=== PATIENT | male | born 1975 | race Caucasian/White ===

== ENCOUNTER 2024-02-03 19:49 | Emergency (ER) | payer OTHER ==
[2024-02-03 20:18] VITALS: BP 139/88; PULSE 91; RESP 19; TEMP 98.5; BMI 31.4
[2024-02-03] MEDS ORDERED: ALBUTEROL SO4 2.5/IPRATROPIUM 0.5 INH SOL 3 ML VIAL.NEB. NEB ONE (22:01)
[2024-02-03] MEDS: ALBUTEROL SO4 2.5/IPRATROPIUM 0.5 INH SOL 3 ML VIAL.NEB. NEB ONE ×2 (22:03)
[2024-02-03] MEDS ORDERED: DEXAMETHASONE 4 MG TABLET (FP) ONE (22:06)
[2024-02-03] MEDS: DEXAMETHASONE 4 MG TABLET (FP) PO ONE (22:11)
[2024-02-03] MEDS ORDERED: ALBUTEROL SO4 HFA INHALER IH ONE ×2 (22:43→22:57)
[2024-02-03] MEDS: ALBUTEROL SO4 HFA INHALER IH ONE (22:57)
== END 2024-02-04 00:11 | disposition home or self-care (01) ==
LOC: JER 19:49
PROC: 3E0F7GC Introduction of Other Therapeutic Substance into Respiratory Tract, Via Natural or Artificial Opening (ICD-10-PCS; principal; 2024-02-03)
PROC: 3E0F7GC Introduction of Other Therapeutic Substance into Respiratory Tract, Via Natural or Artificial Opening (ICD-10-PCS; 2024-02-03)
DX: J45.909 Unspecified asthma, uncomplicated (principal); F16.10 Hallucinogen abuse, uncomplicated
CPT/HCPCS: 70450-TC; 99284-25